=== PATIENT | female | born 1985 | race Two or more races ===

== ENCOUNTER 2024-01-23 06:00 | Day surgery (SDC) | payer BC ==
[2024-01-20 09:40] LABS: Urine Bacteria None Seen /hpf (None Seen)
--- NOTE | 2024-01-20 09:48 | DVHHP ---
ADMIT DATE: 01/23/2024 CHIEF COMPLAINT: Desires bilateral tubal ligation. HISTORY OF PRESENT ILLNESS: The patient is a 38-year-old 2, para 2, admitted for laparoscopic placement of Filshie clips. The patient does not want any other form of contraception. She has diabetes type 1. Risks, complication, failure rate discussed with the patient. The patient fully understands. She wishes to proceed with planned procedure. PAST MEDICAL HISTORY: Diabetes type 1. PAST SURGICAL HISTORY: , surgery for retinal eye detachment. SOCIAL HISTORY: None. FAMILY HISTORY: None. OBSTETRIC AND GYNECOLOGIC HISTORY: Two sections. REVIEW OF SYSTEMS: Consistent with HPI. PHYSICAL EXAMINATION: VITAL SIGNS: Stable, afebrile. HEENT: Within normal limits. CARDIOVASCULAR: Regular rate and rhythm. LUNGS: Clear to auscultation. BREASTS: Symmetrical. No masses. ABDOMEN: Soft, nontender. PELVIC: External genitalia within normal limits. Vagina normal. Cervix grossly normal. Uterus 8 weeks' size. Adnexa nonpalpable. EXTREMITIES: No clubbing, cyanosis or edema. IMPRESSION: Multiparity, desires bilateral tubal sterilization. PLAN: Laparoscopic placement of Filshie clips. Informed consent obtained. Risks, complication of surgery including infection, bleeding, hematoma formation, injury to bowel, bladder, surrounding organs, possibility of DVT, pulmonary embolism, risk of anesthesia discussed with the patient. Options reviewed. Failure rate with tubal sterilization discussed with the patient, use of Filshie clip discussed with the patient. The patient fully understands. She wishes to proceed with planned procedure. DO FRACISCO Porter TID: [id number] RECEIPT: [id number]
[2024-01-20 10:22] LABS: Basophils # (auto) 0 10 ^3/uL (0-0.2); Basophils % (auto) 0.7 % (0.0-2.0); Eosinophils # (auto) 0.3 10 ^3/uL (0-0.8); Eosinophils % (auto) 5.3 % (0.0-7.0); Hematocrit 43.1 % (36.0-46.0); Hemoglobin 14.7 g/dL (12.2-16.2); Lymphocytes # (auto) 1.8 10 ^3/uL (0.4-5.4); Lymphocytes % (auto) 29.4 % (10.0-50.0); Mean Corpuscular Hemoglobin 29.4 pg (28.0-32.0); Mean Corpuscular Volume 86.3 fL (80.0-100.0); Monocytes # (auto) 0.4 10 ^3/uL (0-1.3); Monocytes % (auto) 6.1 % (0.0-12.0); Neutrophils # (auto) 3.7 10 ^3/uL (1.6-8.6); Neutrophils % (auto) 58.5 % (37.0-80.0); Nucleated Red Blood Cells % 0.3 %; Platelet Count (auto) 279 10^3/uL (140-450); Red Blood Cells 4.99 10^6/uL (4.0-5.20); Red Cell Distribution Width 12.8 % (11.8-14.3); White Blood Cell 6.3 10^3/uL (4.4-10.8)
[2024-01-20 10:35] LABS: INR 0.93 (0.9-1.15); Partial Thromboplastin Time 29.6 SEC (24.5-34.5); Prothrombin Time 9.9 sec (9.3-11.8)
[2024-01-20 10:43] LABS: Alanine Aminotransferase 18 U/L (7-40); Alkaline Phosphatase 110 U/L (46-116); Anion Gap 7 (5-15); BUN/Creatinine Ratio 12.7 (10.0-20.0); Blood Urea Nitrogen 10 mg/dL (9-23); Calcium 9.8 mg/dL (8.7-10.4); Carbon Dioxide 28 mmol/L (20-31); Chloride 105 mmol/L (98-107); Potassium 3.8 mmol/L (3.5-5.1); Sodium 140 mmol/L (136-145)
[2024-01-20 10:44] LABS: Albumin 4.6 g/dL (3.2-4.8); Aspartate Aminotransferase 22 U/L (13-40)
[2024-01-20 10:45] LABS: Bilirubin, Total 0.4 mg/dL (0.2-1.0); Total Protein 7.9 g/dL (5.7-8.2); Urine Blood 1+ /uL (Negative); Urine Clarity Clear (Clear); Urine Color Light-Yellow (Yellow); Urine Protein, UAD Negative (Negative); Urine Specific Gravity 1.013 (1.001-1.035); Urine Squamous Epithelial Cell FEW /hpf (<5); Urine Urobilinogen Normal (Negative); Urine WBC 1 /hpf (0 - 5); Urine pH 5.5 (5.0-9.0)
[2024-01-20 10:51] LABS: Glucose 116 mg/dL (74-106)
[~2024-01-23] VITALS: Ht 144.8 cm; Wt 58.5 kg
[~2024-01-23 06:00] MED LIST: INSLISPI SC
[2024-01-23] MEDS ORDERED: ceFAZolin 2 GM/D5W100ml 100 ML IV ONE (06:16)
[2024-01-23] MEDS ORDERED: ROCURONIUM 10MG/ML 10ML VIAL IV ONE (06:46)
[2024-01-23] MEDS ORDERED: SUCCINYLCHOLINE CHLORIDE 20 MG/ML 10ML VIAL IV ONE (06:46)
[2024-01-23] MEDS ORDERED: MIDAZOLAM HCL 2MG/2ML 2ml VIAL (1mg/ml) ONE ×2 (06:58→07:20)
[2024-01-23] MEDS ORDERED: fentaNYL CITRATE 100 MCG/2 ML VL ONE ×3 (06:58→07:20)
[2024-01-23] MEDS ORDERED: MEPERIDINE HCL (50 MG/ML) 1 ML VIAL ONE ×2 (06:58→06:59)
[2024-01-23] MEDS ORDERED: ONDANSETRON HCL 4 MG/2 ML VIAL ONE ×2 (06:59→08:13)
[2024-01-23] MEDS ORDERED: LIDOCAINE 2% TOPICAL JELLY 5 ML URJT TOP ONE (06:59)
[2024-01-23] MEDS ORDERED: LIDOCAINE 1% INJ PF 5ML AMP ONE (06:59)
[2024-01-23] MEDS ORDERED: DexAMETHasone SOD PHOS 10MG/1ML VIAL INJ ONE ×2 (06:59→08:13)
[2024-01-23] MEDS ORDERED: PROPOFOL 10 MG/ML 20 ML IV ONE ×2 (06:59→08:13)
[2024-01-23] MEDS ORDERED: ZOFR4T PO (07:19)
[2024-01-23] MEDS ORDERED: HYDR-4072 PO (07:19)
[2024-01-23] MEDS ORDERED: MEPERIDINE HCL (25 MG/ML) 1ML VIAL ONE (07:20)
[2024-01-23] MEDS ORDERED: ONDANSETRON HCL 4 MG/2 ML VIAL IV PRN (07:30)
[2024-01-23] MEDS ORDERED: LACTATED RINGER'S 1,000 ML IV SCH (07:30)
[2024-01-23] MEDS: BUPIVACAINE HCL 0.25% P/F 10 ML VIAL ONE (08:12)
[2024-01-23] MEDS ORDERED: SUGAMMADEX 200mg/2ml Vial (100MG/ML) IV ONE (08:13)
[2024-01-23] MEDS: LIDOCAINE W/ EPINEPHRINE 1% 20ML VIAL ONE (08:14)
--- NOTE | 2024-01-23 08:22 | DVHOP2 ---
Operative Report DATE OF OPERATION: 01/23/24 PREOPERATIVE DIAGNOSES: 1. Desires elective tubal sterilization. 2. DM TYPE I POSTOPERATIVE DIAGNOSES: 1. Desires elective tubal sterilization. 2. DM TYPE 1 3.EXTENSIVE ABDOMIAL/PELVIC ADHESION SURGEON: Aretha Hernandez D.O. ANESTHESIOLOGIST: TYPE OF ANESTHESIA : General. CONSENT: The patient was informed of the risks and benefits of the procedure. The patient was informed of the risks and benefits of the procedure. These include but are not limited to , complications of anesthesia, postoperative infection, incomplete relief of symptoms, recurrence of symptoms, damage to blood vessels, nerves and tendons, deep venous thrombosis, pulmonary embolism and possible need for repeat surgery in the future. FINDINGS: Cervix is grossly normal appearing. Uterus is 10 weeks' size. Adnexa nonpalpable. COMPLICATIONS: None. BLOOD PRODUCTS USED: None. PROCEDURES: Laparoscopic placement of Filschi Clips to bilateral tubes,ADHESIOLYSIS PROCEDURE IN DETAIL: The patient was taken to the operating room where she was placed under general anesthesia. The patient was then prepped and draped in the usual sterile manner in the dorsal lithotomy position. The bladder was emptied using a straight catheter. Examination under anesthesia revealed the above findings. A weighted speculum was placed in the vagina. The anterior lip of the cervix was grasped using single-tooth tenaculum. Cervix was dilated. Uterus sounded to 10 cm. HUMI catheter was placed. Attention was then turned to the abdomen where a Veress needle was introduced. Abdomen was distended with 3L of CO2 gas. Using Visiport, abdomen was entered under direct visualization. Survey of abdominal cavity revealed EXTENSIVE ABD/PELVIC ADHESIONS WHICH WAS LYSED PRIOR TO PERFORMING THE TUBAL DUE TO POOR VISUALIZTION AFTER AN 8 mm trocar was placed into the suprapubic region. Filshie clip was then loaded on the right tube as well as the left. No bleeding was noted. All the instruments were removed from the abdomen and pelvis. CO2 gas released. Incisional ports were closed using #4-0 Vicryl and severino for the larger port. The patient tolerated the procedure well. All instruments were removed from the patient's cervix. The patient was taken to the recovery room in a stable condition. ESTIMATED BLOOD LOSS: 20 mL ARETHA HERNANDEZ DO Jan 23, 2024 08:22
--- NOTE | 2024-01-23 08:24 | POSTOP ---
Post-Operative Note Post-Operative Note Preop Diagnosis DESIRES TUBAL LIGATION DM TYPE 1 Postop Diagnosis: desires tubal ligation DM TYPE 1 EXTENSIVE ABD/PELVIC ADHESIONS Operation performed LAPAROSCPIC PLACEMENT OF FILSCHIE CLIPS ,ADHESIOLYSIS Specimen NA Anesthesia: General Anesthesiologist: RUSTY Blood Loss(fluid mgmt) 20ML Surgeon Aretha Hernandez Supervisor [employer]plant FILSCHIE Complications & Mgmt NONE Date 01/23/24 Time 08:22 ARETHA HERNANDEZ DO Jan 23, 2024 08:24
--- NOTE | 2024-01-23 08:25 | DVHDS2 ---
Physician Discharge Progress N Final Diagnosis: desires tubal ligation DM TYPE 1 EXTENSIVE ABD/PELVIC ADHESIONS Operations or Procedures: Operations or Procedures LAPAROSCPIC PLACEMENT OF FILSCHIE CLIPS ,ADHESIOLYSIS Condition on Discharge: Good Disposition: Home Discharge Instructions: Diet: Regular Activity: Light activity Follow Up/Referral: 1w Medications: zofran and norco Follow Up Care: Specialist: 1W Discharge Statement: "Patient was advised to return to the ER or call 911 if any headaches, dizziness, shortness of breath, chest pain, abdominal pain, bleeding, fevers, or worsening of medical condition. Patient was counseled about treatment plan, medications, possible side effects, patientverbalized understanding. All questions were answered to the best of my ability. This discharge took greater then 30 minutes in planning, reviewing documentati on, counseling the patient, and discussing with other team members." ARETHA CANNON DO Jan 23, 2024 08:25
[2024-01-23 08:35] VITALS: PULSE 97; RESP 22; TEMP 97.8; O2SAT 97
[2024-01-23] MEDS ORDERED: HYDROmorphone HCL 2 MG/ML VL/or syr ONE (08:43)
[2024-01-23] MEDS ORDERED: MORPHINE SULFATE 4 MG/ML SYR/VIAL IV PRN (08:45)
[2024-01-23] MEDS ORDERED: ONDANSETRON HCL 4 MG/2 ML VIAL IV ONE (08:45)
[2024-01-23] MEDS ORDERED: MIDAZOLAM HCL 2MG/2ML 2ml VIAL (1mg/ml) IV PRN (08:45)
[2024-01-23] MEDS ORDERED: ePHEDrine SULFATE 50 MG/ML AMP IV PRN (08:45)
[2024-01-23] MEDS ORDERED: fentaNYL CITRATE 100 MCG/2 ML VL IV PRN (08:45)
[2024-01-23] MEDS ORDERED: hydrALAZINE HCL 20 MG/ML VL IV PRN (08:45)
[2024-01-23] MEDS: HYDROmorphone HCL 2 MG/ML VL/or syr IV PRN (08:46)
[2024-01-23] MEDS ORDERED: IBUP-1456 PO (09:38)
[2024-01-23 09:40] VITALS: BP 128/75; PULSE 96; RESP 16; O2SAT 93
== END 2024-01-23 10:02 | disposition home or self-care (01) ==
LOC: SUR 06:00
PROVIDERS: ATTEND Obstetrics & Gynecology
DX: Z30.2 Encounter for sterilization (principal); E10.9 Type 1 diabetes mellitus without complications; N73.6 Female pelvic peritoneal adhesions (postinfective); Z64.1 Problems related to multiparity; Z79.4 Long term (current) use of insulin; Z98.891 History of uterine scar from previous surgery; Z98.890 Other specified postprocedural states
CPT/HCPCS: 36415; 49329; 58671; 80053; 81001; 81025; 82962; 84702; 85025; 85610; 85730; 86850; 86900; 86901; A4264; J0330; J1100; J1171; J2175; J2250; J2405; J2704; J3010; J3490

== ENCOUNTER 2024-04-01 15:38 | Emergency (ER) | payer BC ==
[~2024-04-01] VITALS: Ht 175.3 cm; Wt 57.8 kg
[~2024-04-01 15:38] MED LIST changes: +HYDR-4072 PO; +IBUP-1456 PO; +ZOFR4T PO
--- NOTE | 2024-04-01 16:55 | ED.PDOC ---
GI ASSESSMENT HPI Comments 38y F who presents to the ED for chief complaint of nausea and vomiting. Pt states she has been having nausea and vomiting since 2 days prior. Pt states she also has history of type 1 diabetes and states she has been having vision loss due to history of diabetic retinopathy. Pt states she is scheduled to have eye injections for her vision loss at [place] and states she feels overwhelmed by it and been having anxiety bouts. Pt noted to be tearful in the ED. Pt otherwise denies any other symptoms at this time. Chief Complaint: Nausea/Vomiting Time Seen by MD: 16:51 Reviewed Notes: Nurses Notes, Medications, Allergies Allergies: Coded Allergies: NO KNOWN ALLERGIES (Unverified , 01/20/24) Home Meds Active Scripts Lorazepam (ATIVAN TABLET) 0.5 Mg Tb, 1 TAB PO DAILY, #30 TAB Prov:ZAIDA MOSS MD 04/01/24 Ondansetron Odt 4MG Tab (ZOFRAN PO) 4 Mg Tb, 4 MG PO Q4HPRN PRN for 6 Days, #30 TAB ODT TAB-DISSOLVE IN MOUTH, THEN SWALLOW Prov:ZAIDA MOSS MD 04/01/24 Ibuprofen (Ibuprofen) 800 Mg Tab, 800 MG PO TID PRN for 4 Days, #12 TAB Prov:ARETHA CANNON DO 01/23/24 Hydrocodone-Acetaminophen (Hydrocodone/Acetaminophen 10-325 mg) 1 Tab Tab, 1 TAB PO Q6HPRN PRN for 6 Days, #24 TAB Prov:ARETHA CANNON DO 01/23/24 Reported Medications Insulin Lispro (Human) (Humalog) 100 Unit/Ml Inj, 100 UNIT SC, INJ 01/20/24 Information Source: Patient Mode of Arrival: Ambulatory Brought in by: self Timing: Days Duration: Since onset Prehospital treatment: None Quality: None Vomitus: Soft, Firm Stool: Normal Severity: Moderate Recent: None Recent Hx of: Diabetes Pain Location: None Modifying Factors: Nothing Associated sign and symptoms: Nausea, Vomiting Past Medical History PAST MEDICAL HISTORY: Anxiety, DM Past Medical History (Other): gastroparesis, diabetic retinopathy, Surgical History: , Tubal Ligation Surgical History (Other): vitrectectomy TUBE WINDER History: Denies all TUBE WINDER Hx Family History Family History: Family hx of DM Social History Smoker: Non-Smoker Alcohol: Denies ETOH Use Drugs: Denies Drug Use Lives In: Home Constitutional: denies: chills, diaphoresis, fatigue, fever, malaise, sweats, weakness, others EENTM: denies: blurred vision, double vision, ear bleeding, ear discharge, ear drainage, ear pain, ear ringing, eye pain, eye redness, hearing loss, mouth pain, mouth swelling, nasal discharge, nose bleeding, nose congestion, nose pain, photophobia, tearing, throat pain, throat swelling, voice changes, others Respiratory: denies: cough, hemoptysis, orthopnea, SOB at rest, shortness of breath, SOB with excertion, stridor, wheezing, others Cardiovascular: denies: chest pain, dizzy spells, diaphoresis, Dyspnea on exertion, edema, irregular heart beat, left arm pain, lightheadedness, palpitations, PND, syncope, others Gastrointestinal: reports: nausea, vomiting; denies: abdomen distended, abdominal pain, blood streaked bowels, constipated, diarrhea, dysphagia, difficulty swallowing, hematemesis, melena, poor appetite, poor fluid intake, rectal bleeding, rectal pain, others Genitourinary: denies: abnormal vagina bleeding, burning, dyspareunia, dysuria, flank pain, frequency, hematuria, incontinence, pain, , vagina discharge, urgency, others Neurological: denies: dizziness, fainting, headache, left sided numbness, left sided weakness, numbness, paresthesia, pre-existing deficit, right sided numbness, right sided weakness, seizure, speech problems, tingling, tremors, weakness, others Musculoskeletal: denies: back pain, gout, joint pain, joint swelling, muscle pain, muscle stiffness, neck pain, others Integumetry: denies: bruises, change in color, change in hair/nails, dryness, laceration, lesions, lumps, rash, wounds, others Allergic/Immunocompromised: denies: Difficulty Healing, Frequent Infections, Hives, Itching, others Hematologic/Lymphatic: denies: anemia, blood clots, easy bleeding, easy bruising, swollen glands, others Endocrine: denies: excessive hunger, excessive sweating, excessive thirst, excessive urination, flushing, intolerance to cold, intolerance to heat, unexplained weight gain, unexplained weight loss, others Psychiatric: reports: anxiety; denies: bipolar disorder, depression, hopeless, panic disorder, schizophrenia, sleepless, suicidal, others All Other Systems: Reviewed and Negative Physical Exam General Appearance: Mild Distress HEENT: Normal ENT Inspection, Pharynx Normal, TMs Normal Neck: Full Range of Motion, Non-Tender, Normal, Normal Inspection Respiratory: Chest Non-Tender, Lungs Clear, No Accessory Muscle Use, No Respiratory Distress, Normal Breath Sounds Cardiovascular: No Edema, No JVD, No Murmur, No Gallop, Normal Peripheral Pulses, Regular Rate/Rhythm Breast Exam: Deferred Gastrointestinal: No Organomegaly, Non Tender, No Pulsatile Mass, Normal Bowel Sounds, Soft Genitalia: Deferred Pelvic: Deferred Rectal: Deferred Extremities: No calf tenderness, Normal capillary refill, Normal inspection, Normal range of motion, Non-tender, No pedal edema Musculoskeletal : Apperance: Normal Neurologic: Alert, professor of architecture II-XII nml as Tested, No Motor Deficits, No Sensory Deficits, Other (Anxiety) Cerebellar Function: Normal Reflexes: Normal Skin: Dry, Normal Color, Warm Lymphatic: No Adenopathy Was a procedure done? Was a procedure done?: No GI differential Dx Differential Diagnosis: Appendicitis, Gastritis/PUD, Gastroenteritis, Pancreatitis, Dehydration Other Differential Diagnosis anxiety, diabetic retinopathy, X-Ray, Labs, Meds, VS Vital Signs Date Time Temp Pulse Resp B/P (MAP) Pulse Ox O2 Delivery O2 Flow Rate FiO2 04/01/24 16:28 98.3 100 16 109/76 (87) 98 The patient was given Ativan 1 mg p.o. The patient was given Zofran 4 mg p.o. The patient was being discharged and will follow up with her windows server administrator tomorrow The patient will return to the emergency department's condition worsens The patient was given a prescription of Ativan and Zofran Time of 1ST Reevaluation: 17:20 Reevaluation 1ST: Improved Patient Education/Counseling: Diagnosis, Treatment, Prognosis, Need For Follow Up Family Education/Counseling: No Family Present Departure 1 Departure Time of Disposition: 17:01 Impression: Primary Impression: Acute anxiety Additional Impression: Vomiting Qualified Codes: R11.14 - Bilious vomiting Disposition: HOME / SELF CARE / HOMELESS Condition: Fair e-Prescriptions Lorazepam (ATIVAN TABLET) 0.5 Mg Tb 1 TAB PO DAILY, #30 TAB Prov: ZAIDA MOSS MD 04/01/24 Ondansetron Odt 4MG Tab (ZOFRAN PO) 4 Mg Tb 4 MG PO Q4HPRN PRN for 6 Days, #30 TAB ODT TAB-DISSOLVE IN MOUTH, THEN SWALLOW Prov: ZAIDA MOSS MD 04/01/24 Discharged With: Self Critical Care Note Critical Care Time?: No Stability Stability form required: No Heart Score Heart Score: Heart Score Response (Comments) Value History N/A 0 EKG N/A 0 Age N/A 0 Risk Factors N/A 0 Troponin N/A 0 Total 0 I personally scribed for ZAIDA MOSS MD ([email or web address]) on 04/01/24 at 16:55. Electronically submitted by Tiffany Landers ([email or web address]). ZAIDA MOSS MD Apr 01, 2024 16:55
[2024-04-01] MEDS ORDERED: ZOFR4T PO (16:59)
[2024-04-01] MEDS ORDERED: LORA-1121 PO (16:59)
[2024-04-01 19:00] VITALS: BP 94/64; PULSE 90; RESP 18; TEMP 98.3; O2SAT 99
[2024-04-01] MEDS: LORazepam 0.5 MG TAB PO ONE (19:00)
[2024-04-01] MEDS: ONDANSETRON ODT 4 MG TAB PO ONE (19:00)
== END 2024-04-01 19:06 | disposition home or self-care (01) ==
LOC: ER 15:38
DX: F41.9 Anxiety disorder, unspecified (principal); R11.2 Nausea with vomiting, unspecified; H54.7 Unspecified visual loss; E11.9 Type 2 diabetes mellitus without complications; Z79.899 Other long term (current) drug therapy; Z98.51 Tubal ligation status; Z98.890 Other specified postprocedural states
CPT/HCPCS: 99283; Q0162